=== PATIENT | female | born 1975 | race Two or more races ===

== ENCOUNTER 2022-04-02 18:05 | Emergency (ER) | payer OTHER ==
[~2022-04-02] VITALS: Ht 157.5 cm; Wt 87.0 kg
[2022-04-02 18:26] VITALS: BP 139/89
== END 2022-04-02 20:38 | disposition home or self-care (01) ==
LOC: EDBD 18:09 → ER 18:09
DX: U07.1 COVID-19 (principal); E11.9 Type 2 diabetes mellitus without complications; I10 Essential (primary) hypertension; E78.5 Hyperlipidemia, unspecified; Z98.51 Tubal ligation status
CPT/HCPCS: 36415; 71046